=== PATIENT | male | born 1975 | race Caucasian/White ===

== ENCOUNTER 2017-02-16 02:47 | Inpatient (IN) ==
[2017-02-16] MEDS ORDERED: PROTONIX 80 MG in NS 80 ML IV ONE (03:10)
[2017-02-16] MEDS ORDERED: NS 1,000 ML IV ONE (03:10)
[2017-02-16] MEDS ORDERED: ZOFRAN IV ONE (03:10)
[2017-02-16 03:25] LABS: MANUAL DIFF NEEDED? NO
[2017-02-16 03:29] LABS: BASO% 0.7 % (0.0-0.8); EOS# 0.13 X1000 (0.0-0.7); EOS% 1.3 % (0.0-10.0); HEMATOCRIT 40.5 % (42.0-52.0); HEMOGLOBIN 14.2 g/dL (14.0-18.0); IMM GRAN# 0.02 X1000 (0.0-0.04); IMM GRAN% 0.2 % (0.0-0.5); LYMPH% 33.1 % (20.5-51.1); MCH 31.7 PG (27-31); MCHC 35.1 g/dL (33-37); MCV 90.4 FL (81-99); MPV 9.1 FL (7.4-10.4); NEUT% 57.7 % (42.2-75.2); PLT 302 X1000 (130-400); RBC 4.48 XMIL (4.7-6.1)
--- NOTE | 2017-02-16 03:30 | PROVIDER DOCUMENTATION ---
HPI-Abdominal Pain/GI Problem - General Chief Complaint: Abdominal Pain Stated Complaint: ABD PAIN Time Seen by Provider: 02/16/17 03:04 Source: patient Allergies/Adverse Reactions: Patient Allergies Allergy/AdvReac Type Severity Reaction Status Date / Time No Known Allergies Allergy Verified 01/13/17 12:33 Home Medications: Home Medication List Medication Instructions Recorded Confirmed Last Taken Type Omeprazole [Prilosec] 40 mg PO DAILY PRN 12/11/14 01/13/17 03/29/15 History Trazodone [Desyrel] 50 mg PO QHS 03/29/15 01/13/17 01/10/17 History Paroxetine HCl [Paxil] 60 mg PO DAILY 01/12/17 01/13/17 01/12/17 History - History of Present Illness-ABD Nature of Presenting Problems: pt states that since about 4 PM yesterday he had had epigastric pain and nausea without vomiting and he is worried he might have pancreatitis again, When asked about his drinking alcohol he stated he had quite for awhile but drank yesterday but just two beers, yet had strong alcohol odor to his breath. He denies diarrhea/melena/ back pain or fevers. He has not tried anything for the pain which is moderate constant and burning Review of Systems - Adult - REVIEW OF SYSTEMS - ADULT Constitutional: denies: chills, fever Eyes: denies: discharge Ears, Nose, Mouth & Throat: denies: ear pain, sinus problem, throat pain Cardiovascular: denies: chest pain Respiratory: denies: cough, shortness of breath Gastrointestinal: reports: see HPI, abdominal pain, nausea. denies: hematemesis , constipation, diarrhea, rectal bleeding Genitourinary: denies: dysuria, flank pain Musculoskeletal: denies: back pain Integumentary: denies: rash Neurological: denies: headache/migraines, numbness, paresthesia Psychiatric: reports: no symptoms reported Endocrine: reports: no symptoms reported Hematologic/Lymphatic: reports: no symptoms reported Allergic/Immunologic: reports: no symptoms reported All Other Systems: Reviewed and Negative Past History - Adult - PAST MEDICAL HISTORY-ADULT Review of Records: reports: Old Records Reviewed, Nursing Assessment Review, Medications Reviewed, Social history reviewed & non-contributory. Major Childhood Illnesses: reports: denies history Cardiovascular: reports: HTN Respiratory: reports: denies history Gastrointestinal: reports: GERD, pancreatitis Obstetrical/Gynecological: reports: denies history Genitourinary: reports: denies history Musculoskeletal: reports: denies history Neurological: reports: denies history Psychiatric: reports: anxiety Endocrine/Immune: reports: denies history Other Conditions: reports: denies history - PRIOR SURGERIES/PROCEDURES Surgical/Procedure History: reports: appendectomy, other (skin graft/wisdom teeth removed/tendon repair) - IMMUNIZATION STATUS Childhood Immunizations: See Nurse Assessment Flu Vaccine: See Nurse Assessment - FAMILY HISTORY Family History: reviewed, not pertinent - SOCIAL HISTORY Smoking: less than 1 pack/day Substance Use: alcohol Living Situation: alone Physical Exam-General - PHYSICAL EXAM-ADULT Initial Vital Signs Reviewed: Yes - CONSTITUTIONAL General Appearance: appears well, alert, no apparent distress - EYES Eyes: pink conjunctivae. negative: scleral icterus - HEAD, EARS, NOSE, MOUTH & THROAT HENMT: normocephalic/atraumatic, pharynx normal - NECK Neck: non-tender, full range of motion, supple, normal inspection. negative: lymphadenopathy - RESPIRATORY Respiratory: chest non-tender, lungs clear, normal breath sounds, no pleuratic chest pain, no respiratory distress, no accessory muscle use - CARDIOVASCULAR Cardiovascular: regular rate, rhythm, no murmur - GASTROINTESTINAL (ABDOMEN) Abdominal Exam: normal bowel sounds, soft, no organomegaly, no pulsatile mass, tenderness (moderate epigastric). negative: non tender, distended, guarding, rigid, rebound, hernia, mass, hepatomegaly, spleenomegaly, McBurney's point tenderness, Juarez's sign - MUSCULOSKELETAL Back Exam: normal inspection, no CVA tenderness, no vertebral tenderness - SKIN Integumentary: normal color, normal turgor, warm/dry - NEUROLOGIC Neurologic: grossly normal, no motor/sensory deficits - PSYCHIATRIC Psych/Mental Status: normal mood/affect, normal thought content, normal thought process, oriented x 3 Progress - PLAN OF CARE/RESULTS Progress/Plan/Lab Results: Vital Signs - 8 hr 02/16/17 02:50 Temperature 97.6 F Pulse Rate 73 Respiratory Rate 20 Blood Pressure 128/91 O2 Sat by Pulse Oximetry 98 Orders Category Date Time Status Saline Loc DIRECTED Care 02/16/17 03:05 Active NPO Diet 02/16/17 03:05 Active ALCOHOL BLOOD Stat Lab 02/16/17 03:07 Received CBC WITH ELECTRONIC DIFF [HEME] Stat Lab 02/16/17 03:07 Results COMPREHENSIVE METABOLIC PANEL [CHEM] Stat Lab 02/16/17 03:07 Received LIPASE [CHEM] Stat Lab 02/16/17 03:[address] W/POSS RFLX CULT [URINALYSIS] Stat Lab 02/16/17 03:05 Uncollected 0.9% Sodium Chloride Inj [Ns] 1,000 ml Med 02/16/17 03:10 Active IV 999 mls/hr Ondansetron [Zofran] Med 02/16/17 03:10 Discontinued 8 mg IV NOW ONE Pantoprazole [Protonix] 80 mg Med 02/16/17 03:10 Active 0.9% Sodium Chloride Inj [Ns] 80 ml IV NOW Result Diagrams: 02/16/17 03:07 02/16/17 03:07 Departure - Departure Time of Disposition Decision: 04:08 DIAGNOSIS: Acute alcoholic pancreatitis Qualifiers: Acute pancreatitis complication: unspecified Qualified Code(s): K85.20 - Alcohol induced acute pancreatitis without necrosis or infection Disposition: ADMITTED INPATIENT 09 Certified Medical Emergency: Emergent Condition: Fair Referrals and Follow-Ups: None,PCP [Primary Care Provider] - - Critical Care Note This patient required my direct & personal management of CC.: No
[2017-02-16 04:01] LABS: AGAP 13; ALBUMIN 3.9 g/dL (3.5-5.0); ALKALINE PHOSPHATASE 83 U/L (32-122); BUN 5 mg/dL (8-22); CALCIUM 8.1 mg/dL (8.8-10.2); CHLORIDE 101 mmol/L (98-107); COSMO 272; GOT 19 U/L (10-34); GPT 15 U/L (10-44); LIPASE 1035 U/L (13-60); POTASSIUM 3.8 mmol/L (3.5-5.1); SODIUM 137 mmol/L (136-145); TCO2 23 mmol/L (25-35); TOTAL PROTEIN 6.4 g/dL (6.3-8.3)
[2017-02-16] MEDS ORDERED: MORPHINE IV ONE (04:07)
[2017-02-16] MEDS ORDERED: PHENERGAN IV ONE (04:07)
[2017-02-16] MEDS ORDERED: SODIUM CHLORIDE 0.9% INJ ONE (04:07)
[2017-02-16] MEDS ORDERED: OFIRMEV 1000 MG/ISOTONIC SOLN 1,000 MG/100 ML BOTTLE IV ONE (04:07)
[2017-02-16] MEDS ORDERED: PNEUMOVAX 23 IM ONE (05:55)
[2017-02-16 08:44] LABS: URINE CULTURE PL NEEDED? NO
[2017-02-16] MEDS: MORPHINE IV PRN ×4 (08:48→21:56)
[2017-02-16 08:55] LABS: BILIRUBIN URINE NEGATIVE (NEGATIVE); BLOOD URINE NEGATIVE (NEGATIVE); CLARITY CLEAR (CLEAR); COLOR YELLOW; GLUCOSE URINE NEGATIVE (NEGATIVE); LEUKOCYTES URINE TRACE (NEGATIVE); NITRITE URINE NEGATIVE (NEGATIVE); PH URINE 6.5; PROTEIN URINE NEGATIVE (NEGATIVE); SP GRAVITY URINE 1.015; UROBILINOGEN URINE NORMAL
[2017-02-16 08:57] LABS: URINE EPITHELIAL CELLS <10 /HPF (<10); URINE SOURCE CLEAN CATCH; URINE WBC <10 /HPF (<10)
[2017-02-16] MEDS: SODIUM CHLORIDE 0.9% INJ SCH ×2 (11:06→21:51)
[2017-02-16] MEDS: PROTONIX IV SCH ×2 (11:06→21:52)
[2017-02-16] MEDS: M.V.I.-12 10 ML, FOLIC ACID 1 MG, MAGNESIUM SULFATE 1 GM, THIAMINE 100 MG in NS 1,000 ML IV SCH (11:06)
[2017-02-16] MEDS: NS 1,000 ML IV SCH (11:06)
--- NOTE | 2017-02-16 11:18 | HISTORY AND PHYSICAL ---
PRIMARY CARE PHYSICIAN: None. CHIEF COMPLAINT: Epigastric abdominal pain with nausea that began yesterday afternoon. HISTORY OF PRESENTING ILLNESS: This is a 41-year-old male, who presents to [facility] ER with complaints of epigastric abdominal pain that began yesterday afternoon with nausea. He denied any vomiting or diarrhea. States he has had pancreatitis in the past. States he had been a drinker and had quit for a while but has started back and has anywhere from 3-4 glasses of wine or 6 beers on a daily basis. Laboratory data showed his lipase to be 1035, and so he was admitted for further evaluation and treatment. PAST MEDICAL HISTORY: Pancreatitis, hypertension, and GERD. PAST SURGICAL HISTORY: Appendectomy, a skin graft to his left leg, and a right arm tendon repair. FAMILY HISTORY: Noncontributory. SOCIAL HISTORY: Currently lives alone. He is a half a pack a day smoker. Drinks 3-4 glasses of wine or up to 6 beers daily. Denied any illicit drug use. ALLERGIES: He has no known drug allergies. HOME MEDICATIONS: 1. Rexulti 2 mg p.o. daily. 2. Nexium 20 mg p.o. daily. 3. Hydroxyzine 25 mg p.o. daily. 4. Ativan 0.5 mg p.o. b.i.d. 5. Paxil 60 mg p.o. daily. 6. Desyrel 50 mg p.o. at bedtime. All of which are being held at this time due to his n.p.o. status. LABORATORY DATA: White blood cell count of 9.96, hemoglobin 14.2, hematocrit 40.5, platelets 302,000. Sodium of 137, potassium 3.8, chloride 101, CO2 of 23. BUN of 5, creatinine 0.5, glucose 112. Lipase 1035. Urinalysis was negative. Serum alcohol level was 100. REVIEW OF SYSTEMS: He denied any fever, chills, blurred vision, dizziness, chest pain, coughing, shortness of breath. He was positive for epigastric abdominal pain, nausea, denied any vomiting, diarrhea, or burning or hurting with urination. PHYSICAL EXAMINATION: VITAL SIGNS: On arrival, he had a temperature of 97.6 degrees, pulse of 73, respirations 20, blood pressure 128/91, saturating 98% on room air. GENERAL: This is a 41-year-old male, who is lying in the bed and answers questions appropriately. HEENT: Normocephalic and atraumatic. Pupils are equal, round, and reactive to light. The extraocular movements are intact. The oropharynx and nares are clear. NECK: Supple. ABDOMEN: Soft. There is some tenderness to palpation to the epigastric area. Bowel sounds are present x4 quadrants. EXTREMITIES: There is no clubbing, cyanosis, or edema. NEUROLOGIC: The cranial nerves 2-12 are grossly intact. ASSESSMENT: 1. Acute pancreatitis. 2. Epigastric abdominal pain. 3. Tobacco abuse. 4. ETOH abuse. PLAN: He was admitted to the medical unit at [place], held n.p.o., placed on morphine 4 mg IV q. 2 hours p.r.n., normal saline at 125 mL an hour, Protonix 40 mg IV q.12. I am going to allow him to try some ice chips sparingly at this time as he states he is no longer nauseated. If he can tolerate that, then we can advance his diet some. But if not, we will continue his n.p.o. status at this time. Dictated by ABIGAIL Leblanc for Jeronimo Alicea MD cc: ABIGAIL Leblanc MD pt examined, agree with above, likely alcoholic pancreatitis, will pursue imaging and follow closely [facility] MTDD
[2017-02-16] MEDS: ZOFRAN IV PRN (15:36)
[2017-02-16] MEDS ORDERED: NICODERM PATCH TD PRN (16:10)
[2017-02-17] MEDS: MORPHINE IV PRN ×5 (01:57→14:59)
[2017-02-17] MEDS: NS 1,000 ML IV SCH ×3 (03:00→21:33)
[2017-02-17 06:12] LABS: MANUAL DIFF NEEDED? NO
[2017-02-17 06:17] LABS: BASO% 0.4 % (0.0-0.8); EOS# 0.18 X1000 (0.0-0.7); EOS% 1.8 % (0.0-10.0); HEMOGLOBIN 13.1 g/dL (14.0-18.0); LYMPH# 2.05 X1000 (1.2-3.4); LYMPH% 20.2 % (20.5-51.1); MCH 31.3 PG (27-31); MCHC 33.6 g/dL (33-37); MCV 93.1 FL (81-99); MONO# 1.01 X1000 (0.11-0.59); MPV 9.6 FL (7.4-10.4); NEUT% 67.6 % (42.2-75.2); PLT 230 X1000 (130-400); RBC 4.19 XMIL (4.7-6.1)
[2017-02-17 06:31] LABS: AGAP 8; AMYLASE 119 U/L (20-200); BUN 7 mg/dL (8-22); CALCIUM 9.1 mg/dL (8.8-10.2); CHLORIDE 105 mmol/L (98-107); COSMO 279; LIPASE 39 U/L (13-60); POTASSIUM 4.5 mmol/L (3.5-5.1); SODIUM 141 mmol/L (136-145); TCO2 28 mmol/L (25-35)
[2017-02-17 06:36] LABS: ALBUMIN 3.5 g/dL (3.5-5.0); DIRECT BILIRUBIN 0.2 mg/dL (0.00-0.20); TOTAL BILIRUBIN 1.5 mg/dL (0.20-1.00); TOTAL PROTEIN 5.4 g/dL (6.3-8.3)
[2017-02-17] MEDS: M.V.I.-12 10 ML, FOLIC ACID 1 MG, MAGNESIUM SULFATE 1 GM, THIAMINE 100 MG in NS 1,000 ML IV SCH (08:16)
--- NOTE | 2017-02-17 10:19 | Diag Imaging Result Doc PS360 ---
EXAM: US ABDOMEN-COMPLETE HISTORY: pancreatitis TECHNIQUE: COMPARISON: None. FINDINGS: There is a 5.0 cm complex cyst within or adjacent to the head of the pancreas. Normal pancreatic body and tail. No aneurysmal dilatation to the abdominal aorta. Normal inferior vena cava. No focal hepatic abnormality. Normal common bile duct. No calcified gallstones. Questionable mild thickening to the wall of the gallbladder. Gallbladder is distended. Normal right kidney. No hydronephrosis. Normal spleen. Normal left kidney. No hydronephrosis. IMPRESSION: 1.I believe there is a 5 cm pancreatic pseudocyst 2.Distended gallbladder with thickened wall suspicious for cholecystitis Electronically signed by Chas Burger 02/17/2017 10:16 AM
[2017-02-17] MEDS: SODIUM CHLORIDE 0.9% INJ SCH ×2 (10:47→21:33)
[2017-02-17] MEDS: PROTONIX IV SCH ×2 (10:47→21:33)
--- NOTE | 2017-02-17 13:54 | Diag Imaging Result Doc PS360 ---
EXAM: ABDOMEN W/CONTRAST HISTORY: pancreatitis, pseudocyst TECHNIQUE: Dose reduction protocol COMPARISON: Recent abdominal ultrasound FINDINGS: The lung bases are clear. There is a 4.8 x 5.4 cm fluid-filled structure in the pancreatic head. There is a small amount of ascites. No calcified gallstones. Mild fatty infiltration of the liver. No focal hepatic abnormality. The spleen is not enlarged. No pancreatic calcifications. Normal adrenal glands. Normal kidneys. No hydronephrosis. No aortic aneurysm. No bowel obstruction. The appendix is been removed. IMPRESSION: 1.Pseudocyst in the pancreatic head 2.Small amount of ascites. Ascites can result in gallbladder wall thickening which was seen on the recent ultrasound. No calcified stones. Electronically signed by Chas Burger 02/17/2017 1:52 PM
--- NOTE | 2017-02-17 14:24 | PROGRESS NOTE ---
DATE: 02/17/2017 SUBJECTIVE: Patient resting quietly, no complaints voiced. OBJECTIVE: Vital Signs: Temperature 98.8 degrees, pulse 56, respirations 18, blood pressure 121/81, saturating 100% on room air. General: This is a 41-year-old male, who is sitting in the bed and answers questions appropriately. HEENT: Normocephalic and atraumatic. Pupils are equal, round, reactive to light. Extraocular movements are intact. Oropharynx and nares are clear. Neck: Supple. Lungs: Clear to auscultation bilaterally with equal lung expansion and chest wall movement. Heart: With regular rate and rhythm. No murmurs, rubs, or gallops. Abdomen: Soft. Tenderness to palpation to the epigastric and right upper quadrant area. Bowel sounds are present x4 quadrants. Extremities: No clubbing, cyanosis, or edema. Neurological: The cranial nerves 2-12 appear grossly intact. LABORATORY DATA: Showed a white blood cell count of 10.13, hemoglobin of 13.1, hematocrit of 39, platelets 230. Sodium of 141, potassium 4.5, chloride 105, CO2 28, BUN of 7, creatinine 0.6, glucose 89. Total bilirubin of 1.5. Amylase of 119, lipase 39. Abdomen ultrasound this a.m. showed a 5 cm pancreatic pseudocyst and a distended gallbladder with thickened wall suspicious for cholecystitis. ASSESSMENT: 1. An acute pancreatitis, improved. 2. Epigastric abdominal pain. 3. Pancreatic pseudocyst. 4. Cholecystitis. 5. Tobacco abuse. 6. Alcohol abuse. PLAN: He continues to be nothing per oral. We are going to obtain an abdomen CT with contrast today, consult Surgery, continue his IV fluids of normal saline at 125 mL an hour, morphine 4 mg IV q.2 hours p.r.n. Continue his banana bag IV daily, Protonix 40 IV q.12 hours and further disposition once seen by Surgery. Dictated by ABIGAIL Leblanc for Jeronimo Alicea MD cc: ABIGAIL Leblanc MD will get surgical input, CT scan is pending [facility]
[2017-02-17] MEDS: DILAUDID IV PRN ×2 (16:40→21:33)
[2017-02-17] MEDS: ZOFRAN IV PRN (17:57)
[2017-02-17] MEDS: ATIVAN IV PRN (17:57)
[2017-02-18] MEDS: DILAUDID IV PRN ×3 (01:33→09:56)
[2017-02-18] MEDS: NS 1,000 ML IV SCH (05:44)
[2017-02-18 06:50] LABS: HEMATOCRIT 35.6 % (42.0-52.0); MCH 31.2 PG (27-31); MCHC 33.7 g/dL (33-37); MCV 92.5 FL (81-99); MPV 9.7 FL (7.4-10.4); RBC 3.85 XMIL (4.7-6.1)
--- NOTE | 2017-02-18 07:00 | CONSULTATION ---
DATE OF CONSULTATION: 02/17/2017 CHIEF COMPLAINT: Epigastric pain. HISTORY: A 41-year-old gentleman who presented to the [facility] ER complaining of epigastric pain just to the right of the midline. He has a history of recurrent pancreatitis. He has been a drinker for some time. PAST MEDICAL/SURGICAL HISTORY: Pertinent for hypertension, gastroesophageal reflux. He has had previous surgery including an appendectomy, right arm surgery, and a skin graft to his left leg. SOCIAL HISTORY: He does smoke a half a pack per day. Drinks alcohol daily. MEDICATIONS: Listed. ALLERGIES: He has no known drug allergies. REVIEW OF SYSTEMS: As noted above. PHYSICAL EXAMINATION: Vital Signs: He is afebrile. Heart rate 60, blood pressure 131/67. Lymphatics: There is no cervical adenopathy. Lungs: Bilateral breath sounds. Heart: Regular rate and rhythm. Abdomen: He is tender in the epigastrium and right upper quadrant. No masses are palpated. Extremities: No peripheral edema. Neurologic: He is awake and alert. LABORATORY DATA: Reveals a white count of 9900. Total bilirubin 0.5, AST 19, ALT 15, lipase a 1035. CT shows a pancreatic pseudocyst. ASSESSMENT: Most likely, his pain is due to recurrent pancreatitis with a pseudocyst. I do not see any stones in his gallbladder. He may ultimately come to drainage of the pseudocyst but I would certainly let this settle down first to see if his pain will resolve. cc: Eduar Reid MD
[2017-02-18 07:18] LABS: AGAP 9; ALKALINE PHOSPHATASE 78 U/L (32-122); AMYLASE 73 U/L (20-200); BUN 4 mg/dL (8-22); CALCIUM 8.5 mg/dL (8.8-10.2); CHLORIDE 100 mmol/L (98-107); COSMO 265; GOT 13 U/L (10-34); GPT 8 U/L (10-44); LIPASE 31 U/L (13-60); POTASSIUM 3.9 mmol/L (3.5-5.1); SODIUM 134 mmol/L (136-145); TCO2 26 mmol/L (25-35); TOTAL PROTEIN 5.3 g/dL (6.3-8.3)
[2017-02-18 08:33] VITALS: BP 94/56
[2017-02-18] MEDS: M.V.I.-12 10 ML, FOLIC ACID 1 MG, MAGNESIUM SULFATE 1 GM, THIAMINE 100 MG in NS 1,000 ML IV SCH (09:05)
[2017-02-18] MEDS: PROTONIX IV SCH ×2 (09:05→10:04)
[2017-02-18] MEDS: SODIUM CHLORIDE 0.9% INJ SCH (09:05)
[2017-02-18] MEDS: ATIVAN IV PRN (11:22)
--- NOTE | 2017-02-18 14:48 | DISCHARGE SUMMARY ---
ADMISSION DATE: 02/16/2017 DISCHARGE DATE: 02/18/2017 DIAGNOSES: 1. Pancreatitis. 2. Epigastric and abdominal pain. 3. Tobacco abuse. 4. Alcohol abuse. DIAGNOSTICS: Abdominal ultrasound revealed a 5 cm pancreatic pseudocyst with a distended gallbladder with thickened wall suspicious for cholecystitis. On 02/17/2017, abdomen CT revealed pseudocyst in the pancreatic head with a small amount of ascites. Ascites can result in gallbladder wall thickening, which was seen on the recent ultrasound. No calcified stones. HOSPITAL COURSE: Mr. Simons presented to the emergency room complaining of epigastric pain with nausea. He was found to have a lipase of 1035 with a blood alcohol of 100. He was admitted, given IV hydration, IV Protonix. Ativan was ordered p.r.n. anxiety. He did receive 1 mg at 5:00 yesterday. He states that he felt much better after this. He has had no further nausea or vomiting. He has tolerated his diet well. We will advance. He did tolerate his diet without abdominal pain, nausea, or vomiting. He was found to have a total bilirubin of 1.5, but it has decreased, with lipase in the 30s, amylase within normal limits. DISCHARGE PHYSICAL EXAMINATION: Cardiovascular: Regular rate and rhythm. S1 and S2 appreciated. Pulmonary: Breath sounds are clear with no increased work of breathing noted. Gastrointestinal: Abdomen is soft, nontender, nondistended. Bowel sounds in all 4 quadrants. Extremities: No clubbing, cyanosis, or edema. Calves nontender. Pulses palpable x4. DISCHARGE INSTRUCTIONS: It has been discussed with the patient, the perils of continuing alcohol use, including recurrent to chronic pancreatitis and even . He has been instructed per myself as well as Dr. Alicea, the importance of alcohol cessation, and he has been given resources to assist with this as in Alcoholics Anonymous. DISCHARGE MEDICATIONS: Trazodone 50 mg at bedtime, Paxil 60 mg daily, Ativan 0.5 b.i.d., Rexulti 2 mg daily, Nexium 20 mg daily, Zofran 4 mg every 6 hours p.r.n. FOLLOWUP: 1. He is to follow with his primary care physician within the next 1 to 2 weeks , sooner if needed. 2. Dr. Serrato as scheduled. DISPOSITION: He is being discharged home in stable condition with family members. TIME SPENT: This is a greater than 30-minute discharge. Dictated by ABIGAIL Zaragoza for Jeronimo Alicea MD cc: ABIGAIL Zaragoza MD pt examined, advised on alcohol abstinenece, repeat US in 6 weeks [facility] MTDD
== END 2017-02-18 16:59 | disposition home or self-care (01) ==
LOC: P.ED 02:47 → P.MEDSURG 04:52
PROVIDERS: ATTEND Internal Medicine

== ENCOUNTER 2019-01-30 13:54 | Inpatient (IN) ==
[2019-01-30 14:35] LABS: URINE SOURCE CLEAN CATCH
[2019-01-30 14:42] LABS: BILIRUBIN URINE NEGATIVE (NEGATIVE); BLOOD URINE NEGATIVE (NEGATIVE); COLOR YELLOW; GLUCOSE URINE NEGATIVE (NEGATIVE); KETONE URINE TRACE mg/dL (NEGATIVE); LEUKOCYTES URINE NEGATIVE (NEGATIVE); NITRITE URINE NEGATIVE (NEGATIVE); PH URINE 5.5; PROTEIN URINE TRACE mg/dL (NEGATIVE); TURBIDITY URINE CLEAR (CLEAR); UROBILINOGEN URINE NORMAL (NORMAL)
[2019-01-30 14:43] LABS: BASO# 0.04 X1000 (0.0-0.2); BASO% 0.7 % (0.0-0.8); EOS# 0.03 X1000 (0.0-0.7); EOS% 0.5 % (0.0-10.0); HEMATOCRIT 36.7 % (42.0-52.0); HEMOGLOBIN 12.7 g/dL (14.0-18.0); IMM GRAN# 0.02 X1000 (0.0-0.04); IMM GRAN% 0.3 % (0.0-0.5); LYMPH# 3.18 X1000 (1.2-3.4); LYMPH% 51.8 % (20.5-51.1); MCH 29.6 PG (27-31); MCHC 34.6 g/dL (33-37); MCV 85.5 FL (81-99); MONO# 0.49 X1000 (0.11-0.59); MPV 9.5 FL (7.4-10.4); NEUT# 2.38 X1000 (1.4-6.5); NEUT% 38.7 % (42.2-75.2); PLT 84 X1000 (130-400); RBC 4.29 XMIL (4.7-6.1); RDW 14.5 % (11.5-14.5); WBC 6.14 X1000 (4.8-10.8)
[2019-01-30 14:44] LABS: UR EPITHELIAL CELLS <10 /HPF (<10); URINE BACTERIA NEGATIVE /HPF; URINE RBC <10 /HPF (<10); URINE WBC <10 /HPF (<10)
[2019-01-30 15:07] LABS: AGAP 21; ALB/GLOB RATIO 1.3; ALBUMIN 3.9 g/dL (3.5-5.0); ALKALINE PHOSPHATASE 153 U/L (32-122); AMYLASE 52 U/L (20-200); BUN 5 mg/dL (8-22); CALCIUM 8.2 mg/dL (8.8-10.2); CHLORIDE 97 mmol/L (98-107); COSMO 278; CREATININE 0.6 mg/dL (0.7-1.2); ESTIMATED GFR > 60; GLUCOSE 119 mg/dL (70-104); GOT 67 U/L (10-34); GPT 29 U/L (10-44); LIPASE 13 U/L (13-60); POTASSIUM 3.7 mmol/L (3.5-5.1); SODIUM 140 mmol/L (136-145); TCO2 22 mmol/L (25-35); TOTAL PROTEIN 6.9 g/dL (6.3-8.3)
[2019-01-30] MEDS ORDERED: MORPHINE IV ONE (17:14)
[2019-01-30] MEDS ORDERED: ZOFRAN IV ONE (17:14)
[2019-01-30] MEDS ORDERED: NS 1,000 ML IV ONE (17:16)
--- NOTE | 2019-01-30 19:05 | Diag Imaging Result Doc PS360 ---
EXAM: CT ABD/PELVIS W/IV CONT ONLY INDICATION: abdominal pain, Hx of pancreatic cyst, TECHNIQUE: This exam was performed using automated exposure control, adjustment of mA or kV according to patient size, and/or use of iterative reconstruction technique. COMPARISON: 10/04/2018 FINDINGS: There is mild hepatic steatosis. The gallbladder is distended. No biliary dilatation is appreciated. There is extensive inflammatory stranding around the head of the pancreas consistent with acute pancreatitis. There is subtle diminished enhancement head of the pancreas which could indicate early pancreatic necrosis. There is adjacent thickening of the duodenum. There is cavernous transformation associated with the lower portal vein indicating old thrombus that has revascularized. There is extensive nonloculated free fluid emanating from the pancreas but there is no well-defined abscess. The spleen, adrenal glands, and kidneys are unremarkable. The urinary bladder is partially distended and the wall is mildly thickened but stable. This is probably due to underdistention. There are surgical clips in the right lower quadrant suggesting a likely prior appendectomy. There is no evidence of bowel obstruction. The remainder of the GI tract is essentially unremarkable. IMPRESSION: 1.Acute pancreatitis as detailed above. 2.Other incidental/nonacute findings detailed above. Electronically signed by Negro Martinez 01/30/2019 7:03 PM
[2019-01-30] MEDS ORDERED: PHENERGAN IV ONE (20:02)
[2019-01-30] MEDS ORDERED: SODIUM CHLORIDE 0.9% INJ ONE (20:02)
[2019-01-30] MEDS ORDERED: DILAUDID IV ONE (20:02)
--- NOTE | 2019-01-30 21:11 | PROVIDER DOCUMENTATION ---
This chart was entered by Maria Isabel Martinez Scribe, acting as scribe for Elmer Tran MD. HPI-Abdominal Pain/GI Problem - General Chief Complaint: Abdominal Pain Stated Complaint: ABD PAIN HAVE PANCREATITIS Time Seen by Provider: 01/30/19 16:23 Source: patient, family Allergies/Adverse Reactions: Patient Allergies Allergy/AdvReac Type Severity Reaction Status Date / Time No Known Allergies Allergy Verified 10/04/18 19:06 Home Medications: Home Medication List Medication Instructions Recorded Confirmed Last Taken Type Paroxetine HCl [Paxil] 60 mg PO DAILY 01/12/17 10/04/18 02/15/17 History Quetiapine Fumarate [Seroquel] 25 mg PO BID 05/14/18 10/04/18 Unknown History Venlafaxine E.r. [Effexor Xr] 37.5 mg PO DAILY 05/14/18 10/04/18 Unknown History Alprazolam [Xanax] 1 tab PO DAILY 10/04/18 10/04/18 Unknown History Apixaban [Eliquis] 1 tab PO BID 10/04/18 10/04/18 Unknown History Ondansetron HCl [Zofran] 1 tab PO PRN PRN 10/04/18 10/04/18 Unknown History Oxycodone HCl 1 tab PO PRN PRN 10/04/18 10/04/18 Unknown History Pantoprazole [Protonix] 1 tab PO DAILY 10/04/18 10/04/18 Unknown History - History of Present Illness-ABD Nature of Presenting Problems: 43 yom presents w/ mother to er w/cc mother is main historian. she sts long hx of pt having pancreatitis and going to [facility] tx. 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 pt mother tried to call diff pain clinics for pt to go to but ot doesn't have ins and pain clinics will not accept him. pt sts abd pain, body aches nvd, and no appetite. pt vomits 1-2 times/day, yellow. pt has diarrhea 3 time/day. pt denies blood in bm or hematameis. pt has hx of alcohol abuse, smelled of alcohol, [address] in er. Abdominal Pain Onset Location: reports: generalized abdomen Pain Radiation: reports: no radiation Review of Systems - Adult - REVIEW OF SYSTEMS - ADULT Constitutional: reports: other (body aches). denies: fever, fatique, night sweats Eyes: reports: no symptoms reported Ears, Nose, Mouth & Throat: reports: no symptoms reported Cardiovascular: reports: no symptoms reported. denies: chest pain, poor circulation, PND Respiratory: reports: no symptoms reported. denies: pleurisy, shortness of breath, wheezing Gastrointestinal: reports: see HPI, abdominal pain (gen abd), diarrhea, nausea, poor appetite, vomiting. denies: hematemesis, constipation, rectal bleeding Genitourinary: reports: no symptoms reported. denies: dysuria, discharge, hematuria Musculoskeletal: reports: no symptoms reported Integumentary: reports: no symptoms reported Psychiatric: reports: alcohol/drug dependence, depression Past History - Adult - PAST MEDICAL HISTORY-ADULT Review of Records: reports: Old Records Reviewed, Nursing Assessment Review, Medications Reviewed, Social history reviewed & non-contributory. Major Childhood Illnesses: reports: denies history Cardiovascular: reports: HTN Respiratory: reports: denies history Gastrointestinal: reports: GERD, pancreatitis Obstetrical/Gynecological: reports: denies history Genitourinary: reports: denies history Musculoskeletal: reports: denies history Neurological: reports: Seizures/Epilepsy Psychiatric: reports: anxiety Endocrine/Immune: reports: denies history Other Conditions: reports: denies history - PRIOR SURGERIES/PROCEDURES Surgical/Procedure History: reports: appendectomy, other (skin graft/wisdom teeth removed/tendon repair) - IMMUNIZATION STATUS Childhood Immunizations: See Nurse Assessment Flu Vaccine: See Nurse Assessment - FAMILY HISTORY Family History: reviewed, not pertinent - SOCIAL HISTORY Smoking: cigarettes, other (former) Substance Use: alcohol Alcohol Use Frequency: occasionally Physical Exam-General - PHYSICAL EXAM-ADULT Initial Vital Signs Reviewed: Yes - CONSTITUTIONAL General Appearance: alert, moderate distress, thin, other (smells of alcohol). negative: obese, slow to respond, combative - EYES Eyes: PERRL/EOMI, pink conjunctivae - HEAD, EARS, NOSE, MOUTH & THROAT HENMT: normocephalic/atraumatic, moist mucous membranes, normal ENT inspection - NECK Neck: non-tender, full range of motion, supple, normal inspection - RESPIRATORY Respiratory: chest non-tender, lungs clear, normal breath sounds - CARDIOVASCULAR Cardiovascular: normal peripheral pulses, regular rate, rhythm - GASTROINTESTINAL (ABDOMEN) Abdominal Exam: normal bowel sounds, no organomegaly, no pulsatile mass, tenderness (gen abd). negative: non tender, abnormal bowel sounds, guarding, rigid, rebound - MUSCULOSKELETAL Back Exam: normal inspection, no CVA tenderness, no vertebral tenderness Extremity: normal range of motion, non-tender, normal inspection Peripheral Pulses: radial (R): 2+, radial (L): 2+ - SKIN Integumentary: normal color, normal turgor, warm/dry - NEUROLOGIC Neurologic: grossly normal, no motor/sensory deficits - PSYCHIATRIC Psych/Mental Status: oriented x 3 Progress - PLAN OF CARE/RESULTS Progress/Plan/Lab Results: Vital Signs - 8 hr 01/30/19 13:59 Temperature 98.5 F Pulse Rate 114 H Respiratory Rate 20 Blood Pressure 130/84 O2 Sat by Pulse Oximetry 99 Laboratory Results - last 24 hr 01/30/19 01/30/19 01/30/19 14:07 14:07 14:07 WBC 6.14 RBC 4.29 L Hgb 12.7 L Hct 36.7 L MCV 85.5 MCH 29.6 MCHC 34.6 RDW Std Deviation 14.5 Plt Count 84 L MPV 9.5 Immature Gran % (Auto) 0.3 Neut % (Auto) 38.7 L Lymph % (Auto) 51.8 H Chambers % (Auto) 8.0 Eos % (Auto) 0.5 Baso % (Auto) 0.7 Immature Gran # (Auto) 0.02 Neut # (Auto) 2.38 Lymph # (Auto) 3.18 Chambers # (Auto) 0.49 Eos # (Auto) 0.03 Baso # (Auto) 0.04 Sodium 140 Potassium 3.7 Chloride 97 L Carbon Dioxide 22 L Anion Gap 21 BUN 5 L Creatinine 0.6 L Estimated GFR/1.73 m2 > 60 BUN/Creatinine Ratio 8 Glucose 119 H Calculated Osmolality 278 Calcium 8.2 L Total Bilirubin 0.60 AST 67 H ALT 29 Alkaline Phosphatase 153 H Total Protein 6.9 Albumin 3.9 Globulin 3.0 Albumin/Globulin Ratio 1.3 Amylase 52 Lipase 13 Urine Source Urine Color Urine Turbidity Urine pH Ur Specific [place] Urine Protein Ur Glucose (Stick) Ur Ketones (Stick) Urine Blood Urine Nitrite Urine Bilirubin Urobilinogen Dipstick Urine Leukocytes Urine WBC (Auto) Urine RBC (Auto) U Epithel Cells (Auto) Urine Bacteria (Auto) Plasma/Serum Ethyl Alc 299 H 01/30/19 14:15 WBC RBC Hgb Hct MCV MCH MCHC RDW Std Deviation Plt Count MPV Immature Gran % (Auto) Neut % (Auto) Lymph % (Auto) Chambers % (Auto) Eos % (Auto) Baso % (Auto) Immature Gran # (Auto) Neut # (Auto) Lymph # (Auto) Chambers # (Auto) Eos # (Auto) Baso # (Auto) Sodium Potassium Chloride Carbon Dioxide Anion Gap BUN Creatinine Estimated GFR/1.73 m2 BUN/Creatinine Ratio Glucose Calculated Osmolality Calcium Total Bilirubin AST ALT Alkaline Phosphatase Total Protein Albumin Globulin Albumin/Globulin Ratio Amylase Lipase Urine Source CLEAN CATCH Urine Color YELLOW Urine Turbidity CLEAR Urine pH 5.5 Ur Specific [place] 1.000 Urine Protein TRACE A Ur Glucose (Stick) NEGATIVE Ur Ketones (Stick) TRACE A Urine Blood NEGATIVE Urine Nitrite NEGATIVE Urine Bilirubin NEGATIVE Urobilinogen Dipstick NORMAL Urine Leukocytes NEGATIVE Urine WBC (Auto) <10 Urine RBC (Auto) <10 U Epithel Cells (Auto) <10 Urine Bacteria (Auto) NEGATIVE Plasma/Serum Ethyl Alc Orders Category Date Time Status Saline Loc DIRECTED Care 01/30/19 14:02 Active NPO Diet 01/30/19 14:02 Active ALCOHOL BLOOD Stat Lab 01/30/19 14:07 Completed AMYLASE [CHEM] Stat Lab 01/30/19 14:07 Completed CBC WITH ELECTRONIC DIFF [HEME] Stat Lab 01/30/19 14:07 Completed COMPREHENSIVE METABOLIC PANEL [CHEM] Stat Lab 01/30/19 14:07 Completed LIPASE [CHEM] Stat Lab 01/30/19 14:07 Completed URINALYSIS W/POSS RFLX CULT [URINALYSIS] Stat Lab 01/30/19 14:15 Completed Result Diagrams: 01/30/19 14:07 01/30/19 14:07 - REASSESSMENT Reassessment #1 Time Reassessed: 19:50 Status: unchanged (Patient still in pain, nauseated. CT abd showed acute pancreatitis, will admit.) - CT/MRI 1 CT Study: Abdomen, Pelvis (EXAM: CT ABD/PELVIS W/IV CONT ONLY INDICATION: abdominal pain, Hx of pancreatic cyst, TECHNIQUE: This exam was performed using automated exposure control, adjustment of mA or kV according to patient size, and/or use of iterative reconstruction technique. COMPARISON: 10/04/2018 FINDINGS: There is mild hepatic steatosis. The gallbladder is distended. No biliary dilatation is appreciated. There is extensive inflammatory stranding around the head of the pancreas consistent with acute pancreatitis. There is subtle diminished enhancement head of the pancreas which could indicate early pancreatic necrosis. There is adjacent thickening of the duodenum. There is cavernous transformation associated with the lower portal vein indicating old thrombus that has revascularized. There is extensive nonloculated free fluid emanating from the pancreas but there is no well-defined abscess. The spleen, adrenal glands, and kidneys are unremarkable. The urinary bladder is partially distended and the wall is mildly thickened but stable. This is probably due to underdistention. There are surgical clips in the right lower quadrant suggesting a likely prior appendectomy. There is no evidence of bowel obstruction. The remainder of the GI tract is essentially unremarkable. IMPRESSION: 1.Acute pancreatitis as detailed above. 2.Other incidental/nonacute findings detailed above.) - CONSULTS/PCP/HOSPITALIST Notification #1 *Consult/PCP/Hospitalist*: Dr. Augustin Time Discussed: 20:13 Consult Disposition: Admit (Hx, PE and pt care discussed, accepted.) Departure - Departure Date of Disposition Decision: 01/30/19 Time of Disposition Decision: 20:03 DIAGNOSIS: Alcohol abuse Acute pancreatitis Qualifiers: Pancreatitis type: alcohol induced Acute pancreatitis complication: unspecified Qualified Code(s): K85.20 - Alcohol induced acute pancreatitis without necrosis or infection Disposition: ADMITTED INPATIENT 09 Certified Medical Emergency: Emergent Condition: Stable Referrals and Follow-Ups: None,PCP [Primary Care Provider] - Discharge Education: Steps to Quit Smoking, [id number] - Critical Care Note This patient required my direct & personal management of CC.: No Attestation - Physician/ [facility]ER[place] Attestation Patient care was provided by Advanced Practice Provider:: No The physician spent face to face time with patient:: Yes Advanced Practice Provider documentation review:: Supervising physician onsite and consulted in the evaluation and care of this patient. The physician did have a face to face encounter with the patient. This chart was documented by the indicated scribe, (Maria Isabel Martinez Scribe) and accurately reflects the services I performed and decisions made by me, Elmer Rodriguez MD, as attested by the provider's signature.
--- NOTE | 2019-01-30 22:22 | HISTORY AND PHYSICAL ---
PRIMARY CARE PHYSICIAN: None. CHIEF COMPLAINT: Nausea and vomiting for the past several days. HISTORY OF PRESENTING ILLNESS: A 43-year-old male with a history of chronic pancreatitis with pseudocyst, chronic alcoholism, hypertension and GERD who had presented to the emergency department with several days history of worsening nausea and vomiting. Patient states that he could not keep anything down. He was having worsening abdominal pain. The patient's mother states that he had recently had some kind of pancreatic surgery for the pseudocyst due to the fact that they could not drain it and since that time he has been in the bed and not been able to the eat properly. The patient also states that he could not get into pain management so he resorted to drinking alcohol again to relieve his pain. He was seen in the ER. He was in moderate amount of pain, and he was having nausea and vomiting, and due to these presenting symptoms, he will require admission for further management. At the time of my examination, patient denied any headache, fever, chills, chest pain, shortness of breath but complained of nausea, vomiting and abdominal pain. PAST MEDICAL HISTORY: Includes chronic pancreatitis with pseudocyst, hypertension, GERD. PAST SURGICAL HISTORY: Pancreatic surgery unknown and appendectomy. ALLERGIES: No known drug allergies. CURRENT MEDICATIONS: Include Xanax 0.5 mg 1 p.o. t.i.d., Eliquis 5 mg p.o. b.i.d., oxycodone 5 mg 1 p.o. q.6 hours, Protonix 40 mg p.o. daily, Paxil 60 mg p.o. daily, Seroquel 25 mg p.o. b.i.d., Effexor 37.5 mg p.o. daily. SOCIAL HISTORY: Twenty pack years history of smoking, admits to drinking alcohol daily. Denies any illicit drug use. FAMILY HISTORY: No history of coronary artery disease. REVIEW OF SYSTEMS: Fourteen point review of system as listed in HPI. Other systems negative. PHYSICAL EXAMINATION: GENERAL: Cooperative, friendly male. He is still nauseated and vomiting. VITAL SIGNS: Temperature 98.5 degrees, pulse 114, respirations 20, blood pressure 130/84. HEENT: Atraumatic, normocephalic. Extraocular movements intact. PERRLA. NECK: No masses. CHEST: Clear to auscultation. CARDIOVASCULAR: Regular rate and rhythm. ABDOMEN: Soft. Positive bowel sounds. EXTREMITIES: No edema. NEUROLOGIC: He is awake, alert, oriented x3. GENITOURINARY: No bladder distention. SKIN: Warm. LABORATORIES AND STUDIES: WBC 6.14, hemoglobin 12.7, hematocrit 36.7, platelets 84,000, sodium 140, potassium 3.7, chloride 97, CO2 22, BUN is 5, creatinine 0.6, glucose 119. CT of the abdomen and pelvis shows acute pancreatitis. ASSESSMENT: A 43-year-old male with a history of chronic pancreatitis with pseudocyst, hypertension, gastrointestinal reflux disease who presented to emergency department with several days history of nausea and vomiting. Apparently the patient has a long history of chronic alcoholism and states that he relapsed and went back to drinking due to having severe abdominal pain. He was evaluated in the emergency department, and he had imaging done which did show acute pancreatitis. Subsequently he will require admission for further management. 1. Acute on chronic pancreatitis. 2. Chronic alcoholism. 3. Hypertension. 4. Gastroesophageal reflux disease. PLAN: 1. We will admit patient to medical floor with telemetry. 2. We will keep patient n.p.o. Continue with supportive treatment with intravenous fluids, antiemetics, pain control. 3. Counseled patient on alcohol cessation. 4. Monitor blood pressure. Resume antihypertensive agent. 5. Put patient on DVT prophylaxis with SCDs. 6. We will continue to follow and reassess and make further recommendation based on patient's clinical course. cc: Hernandez Augustin MD MTDD
[2019-01-30] MEDS ORDERED: M.V.I.-12 10 ML, FOLIC ACID 1 MG, MAGNESIUM SULFATE 1 GM, THIAMINE 100 MG in NS 1,000 ML IV ONE (22:37)
[2019-01-30] MEDS: NS 1,000 ML IV SCH (23:46)
[2019-01-31] MEDS: DILAUDID IV PRN ×4 (00:59→14:45)
[2019-01-31] MEDS: ZOFRAN IV PRN ×2 (00:59→05:05)
[2019-01-31] MEDS: NS 1,000 ML IV SCH ×3 (05:43→16:50)
[2019-01-31 07:47] LABS: BASO# 0.02 X1000 (0.0-0.2); BASO% 0.7 % (0.0-0.8); EOS# 0.01 X1000 (0.0-0.7); EOS% 0.4 % (0.0-10.0); HEMATOCRIT 30.5 % (42.0-52.0); LYMPH# 0.82 X1000 (1.2-3.4); MCH 28.6 PG (27-31); MCHC 32.8 g/dL (33-37); MCV 87.1 FL (81-99); MONO# 0.33 X1000 (0.11-0.59); MONO% 11.7 % (1.7-9.3); MPV 9.5 FL (7.4-10.4); NEUT# 1.65 X1000 (1.4-6.5); NEUT% 58.2 % (42.2-75.2); PLT 47 X1000 (130-400); RDW 14.2 % (11.5-14.5); WBC 2.83 X1000 (4.8-10.8)
[2019-01-31 08:16] LABS: AGAP 12; BUN 3 mg/dL (8-22); CALCIUM 7.4 mg/dL (8.8-10.2); CHLORIDE 98 mmol/L (98-107); COSMO 273; CREATININE 0.4 mg/dL (0.7-1.2); ESTIMATED GFR > 60; GLUCOSE 114 mg/dL (70-104); POTASSIUM 3.4 mmol/L (3.5-5.1); SODIUM 138 mmol/L (136-145); TCO2 28 mmol/L (25-35)
[2019-01-31] MEDS ORDERED: ATIVAN IV PRN (09:02)
[2019-01-31] MEDS ORDERED: KEPPRA 1,000 MG in NS 100 ML IV ONE (09:30)
[2019-01-31] MEDS ORDERED: SODIUM CHLORIDE 0.9% INJ SCH (11:30)
[2019-01-31] MEDS: ATIVAN IV PRN ×3 (11:58→18:14)
[2019-01-31] MEDS: NEXIUM IV SCH (12:30)
--- NOTE | 2019-01-31 13:43 | PROGRESS NOTE ---
DATE: 01/31/2019 SUBJECTIVE: The patient has no major complaints. OBJECTIVE: Blood pressure is 126/81, heart rate 74, respiratory rate 13, temperature was 98.3 degrees. He had 2 generalized tonoclonic seizures earlier this morning. CAT called and then transferred to the ICU. Evaluated by Earline Bolanos and Dr. Phelan. Appreciate their assistance. He says he has a history of seizures, but it is unclear if those are always associated with withdrawal. He stopped drinking he says about 2 days ago. He is a little bit lethargic but overall he is awake, alert, oriented at the time.Cardiovascular: Regular rate and rhythm. Pulmonary: Bilateral breath sounds clear to auscultation. GI: Was soft, nontender, nondistended. Bowel sounds are positive. Extremities: No clubbing or cyanosis. Lymphatic: No peripheral edema. Neurological: Nonfocal. LABORATORY DATA: White count 2.8, hemoglobin and hematocrit 10, 30, platelets down 47,000, potassium 3.4. PROBLEM LIST: 1. Alcohol withdrawal syndrome now with seizures. He has been placed on Librium, I guess he was not on anything previously for withdrawal and we will continue to follow. 2. Acute on chronic pancreatitis. Reportedly he has had a drain [facility]. There is not evidence of that per se on his CT last night. We will keep him NPO, continue IV fluids and follow closely. I am going to get a GI consult just because he is still having issues with that and he has a complicated history associated with pancreatitis. 3. Seizure disorder, which is likely withdrawal base, but he had 2 very large seizures. Typically we would not institute neuroleptic medications. I will get a neuro consult but that is not available right now. I will get neuro to evaluate him as soon as possible. In the meantime, I am going to keep him on Keppra and we can always discontinue it once neurology has evaluated the patient. 4. Gastroesophageal reflux disease at risk for gastritis. He also has significant alcohol history. I do think GI prophylaxis is in order and we will institute medications and follow. DISPOSITION: Pending clinical status. TIME SPENT: This is a 32 minute critical care time for seizures, IV Ativan required, intensive care monitoring for his acute event. cc: Jeronimo Alicea MD
[2019-01-31] MEDS: LIBRIUM PO SCH ×2 (14:47→20:46)
[2019-01-31] MEDS: POTASSIUM CHLORIDE 20 MEQ, MAGNESIUM SULFATE 2 GM, THIAMINE 100 MG, FOLIC ACID 1 MG, M.... IV SCH ×6 (16:50)
--- NOTE | 2019-01-31 19:56 | GASTROENTEROLOGY CONSULTATION ---
DATE: 01/31/2019 REASON FOR CONSULTATION: Pancreatitis. HISTORY OF PRESENT ILLNESS: This is a 43-year-old male with a history of chronic pancreatitis with pseudocyst. Apparently he follows with Dr. Barker at [facility], per information that was obtained from the patient. He is somewhat difficult to obtain full review of systems. He is drowsy. Apparently he has had seizures this morning. He has received Ativan and pain medication. Currently has seizure pads on his bed. He is awake and alert at present time, but drowsy. Other information is obtained from the nurse. The patient states he had stopped drinking but apparently started back drinking over the last several weeks. I believe he lives with his mother. There is no family at the bedside. He states he has been drinking beer over the last several weeks. Patient states he had surgery related to his pancreas in July at [facility]. I do not have any records available. I do not see where he has seen a help desk rep during his hospital admission previously. He states he has not seen a local help desk rep. Currently he reports a pain level of a 6. He complains of some nausea but denies vomiting. States he has not had a bowel movement in several days. PAST MEDICAL HISTORY: 1. History of chronic pancreatitis with history of pseudocyst and some type of surgery. 2. Hypertension. 3. GERD. 4. History of seizures. PAST SURGICAL HISTORY: Pancreatic surgery, history of appendectomy. ALLERGIES: No known drug allergies. HOME MEDICATIONS: Xanax 1 tablet daily, Zofran 1 as needed, oxycodone 1 tablet as needed, Protonix 1 daily, Seroquel 25 mg twice a day, Effexor 37.5 daily. SOCIAL HISTORY: Positive for tobacco use. He admits to starting back drinking daily. Denies drug use. REVIEW OF SYSTEMS: Per history of present illness. PHYSICAL EXAMINATION: Vital Signs: Temperature 98.9, pulse 82, respirations 14, blood pressure 109/89. General: The patient is drowsy but arouses easily. He is alert. Apparently he has had seizures earlier this morning. A CAT call was called, and he was transferred to the ICU. Currently has seizure pads on the bed. HEENT: Normocephalic atraumatic. Pupils equal, round, reactive to light. Sclerae nonicteric. Cardiovascular: Regular rate and rhythm. Abdomen: Soft. Some tenderness with palpation. Positive bowel sounds. Extremities: No lower extremity edema noted. DIAGNOSTIC RESULTS: Laboratory: WBCs 2.83, hemoglobin 10.0, hematocrit 30.5, MCV 87.1, platelets 47. Chemistry: Sodium 138, potassium 3.4, chloride 98, CO2 28, BUN 3, creatinine 0.7, glucose 114. Total bilirubin 0.60, AST 67, ALT 29, alkaline phosphatase 153, amylase 52, lipase 13. CT scan of abdomen and pelvis showing acute pancreatitis with extensive inflammatory stranding around the head of the pancreas. Diminished enhancement at the head of the pancreas which could indicate early pancreatic necrosis. Extensive non-loculated free fluid from the pancreas with no well- defined abscess. ASSESSMENT AND PLAN: 1. Acute/chronic pancreatitis. Patient has been seen at [facility] and had some type of surgery. He states he has been seen by Dr. Barker at [facility]. Will try to get those records. 2. Abdominal pain. Continue symptomatic treatment. 3. Seizure disorder. Patient has apparently had seizures this morning. He has been transferred to the ICU. He is on seizure medication. I believe he has had a neurology consult placed. 4. Will continue to follow, and further plans will be made as needed. I have discussed this case with Dr. Nair. Thank you for this consultation. Dictated by ABIGAIL Tovar for Brennan Nair MD cc: ABIGAIL Alvarez MD [facility]
[2019-01-31] MEDS: KEPPRA 500 MG in NS 100 ML IV SCH (20:46)
[2019-02-01] MEDS: ATIVAN IV PRN ×4 (01:25→12:07)
[2019-02-01] MEDS: LIBRIUM PO SCH ×5 (01:25→20:08)
[2019-02-01] MEDS: DILAUDID IV PRN ×6 (02:37→21:26)
[2019-02-01 05:36] LABS: BASO# 0.02 X1000 (0.0-0.2); EOS# 0.04 X1000 (0.0-0.7); EOS% 2.1 % (0.0-10.0); HEMATOCRIT 28.4 % (42.0-52.0); HEMOGLOBIN 9.4 g/dL (14.0-18.0); LYMPH# 0.86 X1000 (1.2-3.4); LYMPH% 44.8 % (20.5-51.1); MCH 29.1 PG (27-31); MCHC 33.1 g/dL (33-37); MCV 87.9 FL (81-99); MONO# 0.24 X1000 (0.11-0.59); MONO% 12.5 % (1.7-9.3); NEUT# 0.76 X1000 (1.4-6.5); NEUT% 39.6 % (42.2-75.2); RBC 3.23 XMIL (4.7-6.1); WBC 1.92 X1000 (4.8-10.8)
[2019-02-01 05:38] LABS: PLT 38 X1000 (130-400)
[2019-02-01 06:11] LABS: AGAP 12; ALB/GLOB RATIO 1.1; ALBUMIN 2.8 g/dL (3.5-5.0); ALKALINE PHOSPHATASE 118 U/L (32-122); AMYLASE 28 U/L (20-200); BUN 2 mg/dL (8-22); CHLORIDE 96 mmol/L (98-107); COSMO 264; CREATININE 0.5 mg/dL (0.7-1.2); ESTIMATED GFR > 60; GLUCOSE 86 mg/dL (70-104); GOT 40 U/L (10-34); GPT 18 U/L (10-44); IRON SATURATION 20 %; LIPASE 9 U/L (13-60); MAGNESIUM 2.2 mg/dL (1.5-2.7); PHOSPHORUS 3.2 mg/dL (2.7-4.5); POTASSIUM 3.2 mmol/L (3.5-5.1); SODIUM 134 mmol/L (136-145); TCO2 26 mmol/L (25-35); TIBC 218 ug/dL; TOTAL BILIRUBIN 1.07 mg/dL (0.20-1.00); TOTAL IRON 43 ug/dL (53-167); TOTAL PROTEIN 5.3 g/dL (6.3-8.3); UNBOUND IRON 175 ug/dL (112-346)
[2019-02-01 06:29] LABS: FERRITIN 103 ng/mL (30-400)
[2019-02-01] MEDS: KEPPRA 500 MG in NS 100 ML IV SCH ×2 (09:24→20:07)
[2019-02-01] MEDS ORDERED: PROTONIX PO ONE (12:03)
[2019-02-01] MEDS: NEXIUM IV SCH (12:12)
--- NOTE | 2019-02-01 12:32 | PROGRESS NOTE ---
DATE: 02/01/2019 SUBJECTIVE: The patient has no major complaints. In any case, the patient is stable. He is complaining of wanting to eat. No major pain. OBJECTIVE: Vital Signs: Blood pressure 122/82, heart rate 78, respiratory rate 12, temperature 99 degrees. Heart: Regular rate and rhythm. Pulmonary: Bilateral breath sounds. Clear to auscultation. GI: Soft, nontender, nondistended. Bowel sounds were positive. Extremities: No clubbing or cyanosis. Lymphatic: No peripheral edema. Neurological: Nonfocal. LABORATORY DATA: His white count is 1.9, hemoglobin and hematocrit 9 and 28, platelets 38,000. Potassium is 3.2, BUN and creatinine of 2 and 0.5. Total bilirubin is 1.07, AST and ALT are 40 and 18. Folate is normal. B12 normal. PROBLEM LIST: 1. Acute on chronic pancreatitis. His lipase is normal, but he has chronic pancreatitis. His CT shows significant pancreatitis. Gastroenterology is following. He has had to have some sort of internal drain. I do not know if he has had a [place] procedure. I will try to touch base with Dr. Barker and see how he wants to proceed. We are trying to get records from [facility]. 2. Alcohol withdrawal syndrome. He is on Librium and appears to be controlled. 3. Seizure. His mother reports that he has had two episodes in the past, which he does not attribute to withdrawal, where he just passed out, one episode where he had an aura and then passed out, so he has had partial, at least seizures in the past. He has been on Keppra previously, but he stopped taking the medication for unclear reasons, but I am not entirely sure he does not have a true seizure disorder, and this may not be alcohol withdrawal. Will get a Neurology opinion. He is on so much medication right now, I am not sure if anything would manifest itself in any case between the Librium and intermittent Ativan, and I have kept him on Keppra for the time being. 4. Gastritis. We will continue gastrointestinal prophylaxis. 5. Disposition. He is seizure-free for 24 hours. I think he is stable for step-down, so we will progress with that. cc: Jeronimo Alicea MD
[2019-02-01] MEDS: ZOFRAN IV PRN ×2 (13:18→17:20)
--- NOTE | 2019-02-01 14:42 | GASTROENTEROLOGY PROGRESS NOTE ---
DATE: 02/01/2019 SUBJECTIVE: Mr. Simons was sitting up in his bed. He was resting comfortably. Complains of some abdominal discomfort. However, he was able to tolerate his diet, which is finished. He denies any nausea or vomiting. He continues to have fine tremors. He was lost to words and was not able to communicate clearly but he was awake and alert, responding to questions though. OBJECTIVE: Vital Signs: Temperature is 98.2 degrees, pulse 76 per minute, breathing 15, blood pressure 127/92. Abdomen: Full, soft, mildly tender. Bowel sounds are audible. Labs: Reviewed which showed WBC 1.92, hemoglobin 9.4, hematocrit 28.4, platelets were 38,000. Sodium 134, potassium 3.2, chloride 96, bicarb was 26, BUN was 2, creatinine was 0.5. Total bilirubin was 1.07, AST 40, ALT 18, alkaline phosphatase was 118, amylase was 28, and lipase was 9. IMPRESSION: Acute on chronic pancreatitis. Apparently, he has had surgical intervention. He claims that he had a Whipple's procedure done but the overall picture on CT imaging does not appear to be that way. Details not available. Obviously, there is the possibility of Puestow's procedure. We have requested records from [facility] from Dr. Barker. At this point, his amylase and lipase are normal. I think imaging studies suggestive of changes mostly could be surgical. From a gastrointestinal point of view, there is not much to add for any intervention at this point. If he has tolerated his diet, I would advance it as tolerated to a low fat diet and continue symptomatic treatment and wait for any further information from [facility]. In the meantime, I did discuss with him and his mother about abstaining from alcohol. Apparently, he has a brother who is at home also. According to the mother, they apparently drink all day long while she is gone to work every day. In that case, unfortunately, not much can be done except supportive care that we can provide. cc: Brennan Nair MD
[2019-02-01] MEDS: POTASSIUM CHLORIDE 20 MEQ, MAGNESIUM SULFATE 2 GM, THIAMINE 100 MG, FOLIC ACID 1 MG, M.... IV SCH ×6 (16:14)
[2019-02-01] MEDS: SEROQUEL PO SCH (20:08)
[2019-02-01] MEDS: NICODERM PATCH TD SCH (23:11)
[2019-02-02] MEDS: DILAUDID IV PRN ×2 (01:33→05:47)
[2019-02-02] MEDS: ATIVAN IV PRN ×5 (01:34→20:45)
[2019-02-02] MEDS: LIBRIUM PO SCH ×3 (02:40→20:45)
[2019-02-02 05:46] LABS: BASO# 0.02 X1000 (0.0-0.2); BASO% 0.7 % (0.0-0.8); EOS# 0.04 X1000 (0.0-0.7); EOS% 1.5 % (0.0-10.0); HEMATOCRIT 31.7 % (42.0-52.0); HEMOGLOBIN 10.4 g/dL (14.0-18.0); LYMPH% 40.7 % (20.5-51.1); MCH 29.2 PG (27-31); MCHC 32.8 g/dL (33-37); MONO% 11.1 % (1.7-9.3); MPV 10.2 FL (7.4-10.4); NEUT# 1.24 X1000 (1.4-6.5); PLT 61 X1000 (130-400); RBC 3.56 XMIL (4.7-6.1); RDW 13.9 % (11.5-14.5)
[2019-02-02 06:05] LABS: AGAP 11; ALB/GLOB RATIO 1.2; ALBUMIN 3.3 g/dL (3.5-5.0); ALKALINE PHOSPHATASE 128 U/L (32-122); BUN 2 mg/dL (8-22); CALCIUM 8.2 mg/dL (8.8-10.2); CHLORIDE 98 mmol/L (98-107); COSMO 267; CREATININE 0.6 mg/dL (0.7-1.2); ESTIMATED GFR > 60; GLUCOSE 79 mg/dL (70-104); GOT 40 U/L (10-34); GPT 21 U/L (10-44); POTASSIUM 3.3 mmol/L (3.5-5.1); SODIUM 136 mmol/L (136-145); TCO2 27 mmol/L (25-35)
[2019-02-02] MEDS: PROTONIX PO SCH (06:21)
[2019-02-02] MEDS: KEPPRA 500 MG in NS 100 ML IV SCH (08:12)
[2019-02-02] MEDS: SEROQUEL PO SCH ×2 (08:12→20:46)
[2019-02-02] MEDS: NICODERM PATCH TD SCH (08:12)
[2019-02-02] MEDS ORDERED: LIBRIUM PO SCH (09:00)
[2019-02-02] MEDS ORDERED: KLOR-CON PO ONE (10:25)
--- NOTE | 2019-02-02 11:02 | PROGRESS NOTE ---
DATE: 02/02/2019 SUBJECTIVE: Patient has no major complaints. OBJECTIVE: Blood pressure is 130/89, heart rate of 69, respiratory rate of 20, temperature 97.7 degrees, 98% on room air. Cardiovascular: Regular rate and rhythm. Pulmonary: Bilateral breath sounds clear to auscultation. GI: Soft, nontender. The patient has gotten very agitated. He wants to go home. He is not sure what is going on. Nurses report he thought he was in a store but then he is getting up to call his mother to take him home. Explained that it was really not an option for him. Laboratory Data: White count is 2.6, hemoglobin and hematocrit 10 and 31, platelets 61,000. Potassium 3.3. T-bilirubin 1.2, alkaline phosphatase 128, AST of 40. PROBLEM LIST: 1. Alcohol withdrawal syndrome with delirium tremens. I think we probably tapered him too quickly. I have put him back on the high dose Librium and we will adjust accordingly daily. Please note to future providers to try to tone down every day. He is not on a set taper at this point. I figure we need to adjust accordingly. 2. Acute on chronic pancreatitis. CT changes, gastroenterology feels could be just related to surgical changes and not true pancreatitis. We still do not have records from [facility]. 3. Seizure disorder. I have kept him on the Keppra. I am waiting on Dr. Zarate to see him, which I think he has seen him. I just have not seen his recommendations. He switched him to oral so I think we will continue him on that for right now, although his issues previously have been compliance. His main thing is that he has got chronic pain. He cannot get pain medications so he has been self medicating with alcohol by report. Again, this is not a solution to the problem and he has got severe pancreatitis, severe chronic pancreatitis, and he cannot drink alcohol but apparently he does that. 4. Gastritis. We will continue proton pump inhibitor. DISPOSITION: He is more agitated today so it just depends on his clinical status as far as being able to go home. I am going to leave him in step-down for the time being because he is fairly agitated. cc: Jeronimo Alicea MD
--- NOTE | 2019-02-02 11:06 | CONSULTATION ---
DATE OF CONSULTATION: 02/02/2019 Mr. Simons is 43 years old and he has had some episodes with question of seizure. History from patient and attentive mother at the bedside, and from review of hospital record on the computer is that he has had approximately 4 episodes over a period of 5 or so years. Mother has not witnessed episode firsthand. Patient reports he has been told there is generalized rigidity and jerking. He reports sometimes aware that he is lightheaded with a sense that he is about to pass out. He is sore all over and somnolent afterwards. There is history of chronic alcohol abuse. He also has alprazolam on current medication list. He reports at least a few of his prior episodes have definitely been associated with alcohol withdrawal. Current episode occurred approximately a week after running out of alprazolam. He believes there may be at least 1 or 2 episodes that were not associated with either alcohol withdrawal or benzodiazepine withdrawal. There is history of head injury with diagnosed concussion approximately 8-10 years before the first apparent seizure episode. There is no history of diagnosed stroke. There is no history of seizure in childhood or young adulthood. He has pancreatitis and presented at this time with increased abdominal pain, nausea, and vomiting. He has been afebrile. Chemistry is mostly unremarkable. He has pancytopenia. Ethanol level was nondetected on presentation. His home medicine list includes alprazolam and oxycodone, and we do not have urine drug screen this admission. He reports being prescribed Keppra a few years ago and he took that for just a few days. He believes he had a different seizure medicine and he cannot name that. He believes he took the second seizure medicine for about a month and stopped it because he did not like the way he felt. He and mother believe he has not had medicine for seizure in at least a few years. On exam, Mr. Simons is awake, alert, attentive. His voice is low volume, teeth clenched, sometimes difficult to understand but there is not dysarthria or dysphasia. I did not test his cognitive function. Head and neck are unremarkable. Visual hawkins are full tested by confrontational finger counting. Extraocular movements are full. Facial motility is symmetric. Gag is intact. Tongue is midline. Hearing is good. Shoulder shrug is equal. Strength is normal in the arms and grossly normal in the legs. He did well on weulmn-bi-qimu testing bilaterally. I did not test his gait. He has good pinprick appreciation over the hands and feet. Reflexes are brisk to 1+ at the wrists and trace at the ankles bilaterally. IMPRESSION: History of episodes with question of seizure. I do not have firsthand report and I do not have reports of prior workup. I have ordered EEG to be done here this admission. We discussed options for seizure medications and he told me he would like to try Keppra again. He has tolerated IV levetiracetam over the last 24 hours or so. I will start him on levetiracetam 500 mg by mouth twice a day and we can adjust that dose as an outpatient if needed. I discussed the [place] law as it pertains to driving with mother and patient. Thanks for asking neurology to see Mr. Simons. cc: Niles Zarate III, MD MTDD
--- NOTE | 2019-02-02 15:32 | GASTROENTEROLOGY PROGRESS NOTE ---
DATE: 02/02/2019 SUBJECTIVE: Patient is having some agitation. Mother is at the bedside. Patient has been in restraints. The patient has recently been seen by Neurology, Dr. Zarate. I believe they will start him on the oral seizure medication. I believe his Librium has been restarted. I have spoken with the mother about the surgical procedure the patient had at [facility]. From her description of the procedure, it sounds like he had a Puestow's procedure. We have requested [facility] records but I have not seen those yet. OBJECTIVE: Vital Signs: Temperature 98.5 degrees, pulse 73, respirations 20, blood pressure 116/79. General: Patient is awake. At the time on my evaluation, he was cooperative. He did not know where he was but he knew the name of the president, he was able to answer most of my questions. His mother was at the bedside. LABORATORY: Hematology: WBC 2.70, hemoglobin 10.4, hematocrit 31.7, MCV 89.0, platelets 61,000. Chemistry: Sodium 136, potassium 3.3, chloride 98, CO2 27, BUN 2, creatinine 0.6, glucose 79. ASSESSMENT AND PLAN: 1. Alcohol withdrawal and symptoms related to delirium tremens. The patient has been restarted on Librium. 2. Seizure disorder. Patient has been seen by Dr. Zarate. I believe they will be starting oral seizure medication. 3. Acute/chronic pancreatitis. I believe patient has had Puestow's procedure at [facility] in July. We have asked for those records. Continue symptomatic treatment and supportive care. Further plans to be made as needed. I have discussed with the patient and the mother about his need to avoid all alcohol use. I have discussed this case with Dr. Nair. Dictated by ABIGAIL Tovar for Brennan Nair MD cc: ABIGAIL Alvarez MD [facility]
[2019-02-02] MEDS: POTASSIUM CHLORIDE 20 MEQ, MAGNESIUM SULFATE 2 GM, THIAMINE 100 MG, FOLIC ACID 1 MG, M.... IV SCH ×6 (16:55)
--- NOTE | 2019-02-02 17:29 | HEMO/ONC CONSULTATION ---
DATE: 02/02/2019 REQUESTING PHYSICIAN: Consultation requested by hospitalist service. REASON FOR CONSULTATION: Pancytopenia. HISTORY OF PRESENT ILLNESS: Mr. Simons is a 43-year-old, male who has a history of chronic pancreatitis as well as chronic alcoholism who presented to the emergency department at [facility] complaining of increased nausea and vomiting. He was found to have acute pancreatitis. He was hospitalized and actually started to undergo withdrawals from his alcohol, and he did start to have seizures. Upon admission, his white count was normal at 6.14. His hemoglobin was 12.7, his platelet count was 84,000. Now his white count is 2.70 with a hemoglobin of 10.4. His platelets are relatively stable at 61,000. We have been consulted to work up his pancytopenia. PAST MEDICAL HISTORY: 1. Chronic pancreatitis with pseudocyst. 2. Hypertension. 3. GERD. 4. Chronic alcoholism. PAST SURGICAL HISTORY: 1. Some sort of pancreatic surgery, unknown the exact procedure. 2. Appendectomy. SOCIAL HISTORY: The patient has 20-pack smoke year history. He drinks alcohol daily though the quantity has not been fully determined, and he denies any illicit drug use. FAMILY HISTORY: Negative for coronary disease. REVIEW OF SYSTEMS: Twelve-point review of systems has been completed and is negative except for expressed in HPI. PHYSICAL EXAMINATION: Vital Signs: Temperature 98.5 degrees, heart rate 73, respirations 20, blood pressure 116/79, O2 saturation 99% on room air. General: This is a young male sitting up in his hospital bed. He is in no acute distress. HEENT: Head normocephalic, atraumatic. Eyes: Pupils equal, round, reactive. Ears, nose, throat, neck, mouth: Oral mucosa is normal. Cardiovascular: S1, S2 heard with no murmurs, gallops or rubs appreciated. Respiratory: Chest is clear. Gastrointestinal: Abdomen is soft. Musculoskeletal: No bony abnormalities. Skin: No rashes noted. Neurologic: Patient is alert. LABS AND STUDIES: White blood cells 2.70, hemoglobin 10.4, hematocrit 31.7, platelet count 31,000. Sodium 136, potassium 3.3, chloride 98, CO2 27, BUN 2, creatinine 0.6, glucose 124, total iron 43, iron saturation percent 20, ferritin 103, vitamin B12 536, folate 22.72. Bilirubin is 1.20, alkaline phosphatase 128. AST and ALT are [address] of abdomen and pelvis with IV contrast only shows that the spleen, adrenal glands, and kidneys are unremarkable. He has acute pancreatitis. ASSESSMENT AND PLAN: 1. Pancytopenia. When comparing his admitting lab values with his current lab values, he does appear to have chronic thrombocytopenia. This is likely due to toxic suppression of his marrow from his chronic alcoholism, his more acute leukopenia and anemia that could be drug induced and also related to marrow suppression. He is in with acute issues, and with those on top of his less than ideal marrow function, we are seeing his counts come down some. We are going to go ahead and check a reticulocyte count as well as LDH and haptoglobin to make sure he has no underlying hemolysis. Vitamin studies have previously been checked, and they look good at this time. Otherwise, we recommend continued supportive care. Provide transfusions as needed. Discussed with the patient cutting back to completely stopping alcohol consumption, which could definitely help with some of these chronic issues. We will follow up on lab values and continue to follow along and be available as needed. 2. Acute on chronic pancreatitis. Continue per GI as well as the primary team. 3. Chronic alcoholism now with withdrawal syndrome with seizures. Continue antiseizure medication per the primary team. Encouraged alcohol cessation. 4. Gastritis. Continue PPI. We want to thank you for this consult. Dictated by VILMA Gonzalez for Xiomara Vilchis MD cc: Xiomara Vilchis MD I have seen and examined the patient and agree with the above note. It reflects my history, physical exam, assessment and plan. Xiomara SEVERINO
[2019-02-02] MEDS: KEPPRA PO SCH (20:45)
[2019-02-02] MEDS: HALDOL IM PRN (20:45)
[2019-02-03] MEDS: LIBRIUM PO SCH ×4 (01:07→20:04)
[2019-02-03] MEDS: HALDOL IM PRN (01:09)
[2019-02-03] MEDS: ATIVAN IV PRN ×4 (01:09→17:10)
[2019-02-03] MEDS: PROTONIX PO SCH (06:00)
[2019-02-03 06:11] LABS: BASO# 0.02 X1000 (0.0-0.2); BASO% 0.7 % (0.0-0.8); MCV 89.4 FL (81-99); RDW 14.2 % (11.5-14.5)
[2019-02-03 06:25] LABS: EOS# 0.14 X1000 (0.0-0.7); HEMATOCRIT 28.6 % (42.0-52.0); HEMOGLOBIN 9.4 g/dL (14.0-18.0); IMM GRAN# 0.02 X1000 (0.0-0.04); IMM GRAN% 0.7 % (0.0-0.5); LYMPH# 1.08 X1000 (1.2-3.4); LYMPH% 38.8 % (20.5-51.1); MCH 29.4 PG (27-31); MCHC 32.9 g/dL (33-37); MONO# 0.39 X1000 (0.11-0.59); MPV 11.2 FL (7.4-10.4); NEUT# 1.13 X1000 (1.4-6.5); NEUT% 40.8 % (42.2-75.2); PLT 60 X1000 (130-400); WBC 2.78 X1000 (4.8-10.8)
[2019-02-03 06:30] LABS: AGAP 11; ALB/GLOB RATIO 1.1; ALBUMIN 2.7 g/dL (3.5-5.0); ALKALINE PHOSPHATASE 103 U/L (32-122); BUN 1 mg/dL (8-22); CALCIUM 8.1 mg/dL (8.8-10.2); CHLORIDE 107 mmol/L (98-107); COSMO 278; CREATININE 0.5 mg/dL (0.7-1.2); ESTIMATED GFR > 60; GLUCOSE 84 mg/dL (70-104); GOT 29 U/L (10-34); GPT 16 U/L (10-44); POTASSIUM 3.5 mmol/L (3.5-5.1); SODIUM 142 mmol/L (136-145); TCO2 24 mmol/L (25-35); TOTAL BILIRUBIN 0.83 mg/dL (0.20-1.00); TOTAL PROTEIN 5.2 g/dL (6.3-8.3)
[2019-02-03] MEDS: SEROQUEL PO SCH ×2 (08:21→20:05)
[2019-02-03] MEDS: NICODERM PATCH TD SCH (08:21)
[2019-02-03] MEDS: KEPPRA PO SCH ×2 (08:21→20:04)
[2019-02-03] MEDS: DILAUDID IV PRN ×3 (11:19→20:55)
[2019-02-03] MEDS: ZOFRAN IV PRN (15:30)
--- NOTE | 2019-02-03 16:01 | GASTROENTEROLOGY PROGRESS NOTE ---
DATE: 02/03/2019 SUBJECTIVE: Patient is still somewhat confused. He is currently not in restraints. His mother is at the bedside. We did receive records from [facility]. Records were reviewed. On August 01, 2018 patient had an exploratory laparotomy with anterior gastrotomy, posterior gastrotomy, ultrasound- guided aspiration of pancreatic cyst and looped gastrojejunostomy. In September he was diagnosed with portal vein thrombosis and gastric outlet obstruction and started on anticoagulation. He had a paracentesis on 09/30/2018 with 3 L of fluid removed. He was discharged on 10/06/2018. He had another admission for upper GI bleeding. Due to GI bleeding his anticoagulation was discontinued. He had an EGD that showed an ulcer at the GJ anastomosis. OBJECTIVE: Vital Signs: Temperature 97.6 degrees, pulse 71, respirations 17, blood pressure 100/62. General: Patient is awake and alert. His mother is at the bedside. He still has some confusion. He is under DT precautions. He was tolerating a full liquid diet and his diet has been advanced today to a GI soft diet. Patient currently denies abdominal pain. LABORATORY: Hematology: WBC 2.78, hemoglobin 9.4, hematocrit 28.6, MCV 89.4, platelets 60,000. Chemistry: Sodium 142, potassium 3.5, chloride 107, CO2 24, BUN 1, creatinine 0.5, glucose 84, total bilirubin 0.83, AST 29, ALT 16, alkaline phosphatase 103. His amylase and lipase were normal over the last several days. ASSESSMENT AND PLAN: 1. Acute pancreatitis. Continue symptomatic treatment and supportive care. 2. Seizure disorder. The patient has had seizures this admission. The patient has been seen by Neurology and started on oral antiseizure medication. 3. Pancytopenia. Has been seen by Hematology. Continue their recommendations and workup. 4. Alcohol withdrawal. Patient is under DT precautions. Will continue to follow. 5. We have received records from [facility] and I have reviewed those records and will review with Dr. Nair. Continue current management. Further plans will be made according to his progress. I have discussed this case with Dr. Nair. Dictated by ABIGAIL Tovar for Brennan Nair MD cc: ABIGAIL Alvarez MD
[2019-02-03] MEDS: POTASSIUM CHLORIDE 20 MEQ, MAGNESIUM SULFATE 2 GM, THIAMINE 100 MG, FOLIC ACID 1 MG, M.... IV SCH ×6 (17:10)
--- NOTE | 2019-02-03 17:51 | PROGRESS NOTE ---
DATE: 02/03/2019 SUBJECTIVE: The patient is resting comfortably. Earlier this morning he was noted to have a period of confusion. OBJECTIVE: Vital Signs: Temperature 97.5 degrees, blood pressure 96/65, heart rate 68, respirations 16, O2 saturation is 100% on room air. General: This is a middle-aged male, lying in bed, in no acute distress. Heart: S1, S2 normal. Regular rate and rhythm. Lungs: Clear to auscultation bilaterally. Abdomen: Positive bowel sounds. Soft, nontender, nondistended. Extremities: No edema. No cyanosis. Neurologic: The patient is alert and oriented x3. LABS: White blood cell count 2.7, hemoglobin 9.4, hematocrit 28, platelets 60,000. Sodium 142, potassium 3.5, chloride 107, CO2 24, BUN 1, creatinine 0.5, glucose 84, albumin 2.7. ASSESSMENT AND PLAN: 1. Acute pancreatitis. Improved. Continue with supportive care. 2. Pancytopenia. Continue to monitor closely. Hematology is following. 3. Alcohol withdrawal. Slowly improving. The patient is on Librium. 4. Seizure disorder. The patient is on Keppra. 5. Tobacco dependence. Continue on the NicoDerm patch. 6. Portal vein thrombosis. Aware. cc: Taylor Ruiz MD
[2019-02-04] MEDS: LIBRIUM PO SCH ×3 (02:24→17:36)
[2019-02-04] MEDS: DILAUDID IV PRN ×2 (06:49→10:57)
[2019-02-04] MEDS: PROTONIX PO SCH (06:49)
[2019-02-04 07:45] LABS: BASO# 0.02 X1000 (0.0-0.2); BASO% 0.6 % (0.0-0.8); EOS# 0.07 X1000 (0.0-0.7); EOS% 2.1 % (0.0-10.0); HEMATOCRIT 30.2 % (42.0-52.0); HEMOGLOBIN 9.7 g/dL (14.0-18.0); LYMPH# 1.28 X1000 (1.2-3.4); LYMPH% 38.8 % (20.5-51.1); MCH 29.3 PG (27-31); MCHC 32.1 g/dL (33-37); MCV 91.2 FL (81-99); MONO% 15.2 % (1.7-9.3); MPV 10.2 FL (7.4-10.4); NEUT# 1.43 X1000 (1.4-6.5); NEUT% 43.3 % (42.2-75.2); PLT 103 X1000 (130-400); RBC 3.31 XMIL (4.7-6.1); RDW 14.9 % (11.5-14.5)
[2019-02-04 08:08] LABS: AGAP 11; ALBUMIN 2.8 g/dL (3.5-5.0); ALKALINE PHOSPHATASE 101 U/L (32-122); BUN 2 mg/dL (8-22); CALCIUM 8.4 mg/dL (8.8-10.2); CHLORIDE 108 mmol/L (98-107); COSMO 281; CREATININE 0.6 mg/dL (0.7-1.2); ESTIMATED GFR > 60; GLUCOSE 99 mg/dL (70-104); GOT 26 U/L (10-34); GPT 16 U/L (10-44); POTASSIUM 3.7 mmol/L (3.5-5.1); SODIUM 143 mmol/L (136-145); TCO2 24 mmol/L (25-35); TOTAL BILIRUBIN 0.52 mg/dL (0.20-1.00); TOTAL PROTEIN 5.6 g/dL (6.3-8.3)
[2019-02-04] MEDS: NICODERM PATCH TD SCH (08:15)
[2019-02-04] MEDS: SEROQUEL PO SCH ×2 (08:15→20:27)
[2019-02-04] MEDS: KEPPRA PO SCH ×2 (08:15→20:27)
[2019-02-04] MEDS: ATIVAN IV PRN ×3 (09:02→20:27)
--- NOTE | 2019-02-04 12:03 | PROGRESS NOTE ---
DATE: 02/04/2019 SUBJECTIVE: Mr. Simons has not had any further seizures. He has levetiracetam 500 mg p.o. b.i.d. and is tolerating that. We discussed several specific potential levetiracetam adverse effects and he reports no problems. I do not have any new suggestion. I would continue levetiracetam at current dose. I offered to follow him as an outpatient and we might need to consider titrating the levetiracetam dose later. I will sign off for now. Glad to see Mr. Simons again if he has another seizure before discharge. Thanks for asking Neurology to see him. cc: MD MAYCOL Osuna III
--- NOTE | 2019-02-04 15:19 | GASTROENTEROLOGY PROGRESS NOTE ---
DATE: 02/04/2019 SUBJECTIVE: Patient is awake. He seems more alert today. He still has some disorientation with some of the questions I have asked him. No family is at the bedside. He still reports some abdominal pain. OBJECTIVE: Vital Signs: Temperature 98.5 degrees, pulse 88, respirations 14, blood pressure 105/71. General: Patient is awake, mostly alert. Abdomen: Soft. Mild tenderness with palpation. LABORATORY DATA: Hematology: WBC 3.30, hemoglobin 9.7 , hematocrit 30.2, MCV 91.2, platelet 103,000. Chemistry: Sodium 143, potassium 3.7, chloride 108, CO2 24, BUN 2, creatinine 0.6, glucose 99. ASSESSMENT AND PLAN: 1. Acute pancreatitis. Amylase and lipase last checked were normal. Continue symptomatic treatment and supportive care. 2. Seizure disorder. Patient has had a seizure during this hospitalization. He has been seen by Neurology. 3. Alcohol withdrawal. Continue DT precautions. 4. We had received records from [facility] and those were reviewed by Dr. Nair. He recommends patient follow up with Dr. Barker at [facility] once he is discharged. Patient states he already has a followup appointment with Dr. Barker in February. Will continue to follow during his hospital course. I have discussed this case with Dr. Nair. Dr. Nair is off the rest of the week and if there is an emergency, Dr. Durham can be called or notify on-call GI physician. Dictated by ABIGAIL Tovar for Brennan Nair MD cc: ABIGAIL Alvarez MD [facility]
[2019-02-04] MEDS: NORCO-5 PO PRN ×2 (16:09→22:44)
[2019-02-04] MEDS: POTASSIUM CHLORIDE 20 MEQ, MAGNESIUM SULFATE 2 GM, THIAMINE 100 MG, FOLIC ACID 1 MG, M.... IV SCH ×6 (17:36)
--- NOTE | 2019-02-04 18:12 | PROGRESS NOTE ---
DATE: 02/04/2019 SUBJECTIVE: The patient is resting comfortably in bed. No acute events noted overnight. OBJECTIVE: Vital Signs: Temperature 98, blood pressure 96/71, heart rate 74, respirations 18, O2 saturation is 100% on room air. General: This is a middle-aged male lying in bed in no acute distress. Heart: S1, S2 normal. Regular rate and rhythm. Lungs: Clear to auscultation bilaterally. No wheezing. No rales. No rhonchi. Abdomen: Positive bowel sounds. Soft, nontender, nondistended. Extremities: No edema, no cyanosis. Neurologic: The patient is alert and oriented x 3. LABS: White blood cell count 3, hemoglobin 9.7, hematocrit 30, platelets are 103. Sodium 143, potassium 3.7, chloride 108, CO2 of 24, BUN 2, creatinine 0.6. ASSESSMENT AND PLAN: 1. Acute pancreatitis, improved. The patient is tolerating a gastrointestinal soft diet. We will continue with p.r.n. pain medication. 2. Seizure disorder. Continue on Keppra. 3. Alcohol withdrawal. We will continue to wean the patient's Librium dosage. 4. Disposition. The patient will likely be discharged home tomorrow. cc: Taylor Ruiz MD
[2019-02-05] MEDS: LIBRIUM PO SCH ×2 (00:50→09:35)
[2019-02-05] MEDS: HALDOL IM PRN (00:50)
[2019-02-05] MEDS: ATIVAN IV PRN ×2 (04:03→08:50)
[2019-02-05] MEDS: NORCO-5 PO PRN ×2 (04:06→10:11)
[2019-02-05] MEDS: PROTONIX PO SCH (06:57)
[2019-02-05 07:45] LABS: AGAP 11; ALB/GLOB RATIO 1.1; ALBUMIN 2.7 g/dL (3.5-5.0); ALKALINE PHOSPHATASE 92 U/L (32-122); BUN 6 mg/dL (8-22); CALCIUM 7.6 mg/dL (8.8-10.2); CHLORIDE 108 mmol/L (98-107); COSMO 282; CREATININE 0.7 mg/dL (0.7-1.2); ESTIMATED GFR > 60; GLUCOSE 147 mg/dL (70-104); GOT 23 U/L (10-34); GPT 15 U/L (10-44); POTASSIUM 3.6 mmol/L (3.5-5.1); SODIUM 141 mmol/L (136-145); TCO2 22 mmol/L (25-35); TOTAL BILIRUBIN 0.34 mg/dL (0.20-1.00); TOTAL PROTEIN 5.1 g/dL (6.3-8.3)
[2019-02-05 09:08] VITALS: BP 102/66
[2019-02-05] MEDS: KEPPRA PO SCH (09:35)
[2019-02-05] MEDS: SEROQUEL PO SCH (09:35)
[2019-02-05] MEDS: NICODERM PATCH TD SCH (09:35)
--- NOTE | 2019-02-05 15:55 | GASTROENTEROLOGY PROGRESS NOTE ---
DATE: 02/05/2019 SUBJECTIVE: Patient is up walking in the room. He is getting dressed. He states he has discharge orders to go home today. He still reports some abdominal pain, but that has improved. OBJECTIVE: Vital Signs: Temperature 97.4 degrees, pulse 71, respirations 18, blood pressure 102/66. General: The patient is awake and alert, no acute distress. LABORATORY: Hematology: WBC 3.30, hemoglobin 9.7, hematocrit 30.2, MCV 91.2, platelet 103. Chemistry: Sodium 141, potassium 3.6, chloride 108, CO2 of 22. BUN 6, creatinine 0.7. Total bilirubin 0.34, AST 23, ALT 15, alkaline phosphatase 92. Amylase and lipase on 02/01/2019 was 28 and 9. ASSESSMENT AND PLAN: 1. Acute pancreatitis has improved. He is tolerating a soft diet. 2. Seizure disorder seen by Neurology. Continuing on anti seizure medications. 3. Alcohol withdrawal. I have discussed again with the patient the importance of avoiding all alcohol. We have recommend the patient follow back with Dr. Barker in [place]. He already has an appointment in February per patient's report. Follow up in our office as needed. I have discussed this case with Dr. Nair. Dictated by ABIGAIL Tovar for Brennan Nair MD cc: ABIGAIL Alvarez MD
== END 2019-02-05 12:17 | disposition home or self-care (01) | DRG 438 ==
LOC: ED 13:54 → SUATTDRO 21:57 → 3N 21:57 → ICU 01-31 09:05 → 3S 02-01 15:14 → 3N 02-03 14:12
PROVIDERS: ATTEND Internal Medicine
CPT/HCPCS: 74177; 80048; 80053; 80307; 80320; 81001; 82055; 82150; 82607; 82728; 82746; 82948; 83010; 83540; 83550; 83615; 83690; 83735; 84100; 85025; 96374; 96375; 99285; A9270; G0480; G6040; J1170; J1630; J1953; J2060; J2270; J2405; J2550; J3411; J3475; J3480; J7030; Q9967; XXXXX